=== PATIENT | female | born 1995 ===

== ENCOUNTER 2024-05-23 05:35 | Day surgery (SDC) | payer OTHER ==
[2024-05-23] MEDS ORDERED: POVIDONE-IODINE 118 ML BOTT TOP ONE (08:46)
[2024-05-23] MEDS ORDERED: SUGAMMADEX SODIUM 200 MG/2 ML VIAL IV ONE (09:51)
[2024-05-23] MEDS ORDERED: HEMOSTATIC MATRIX 1 KIT KIT TOP ONE (10:41)
[2024-05-23] MEDS ORDERED: SURGIFLO APPLICATOR 1 EACH APPL TOP ONE (10:41)
[2024-05-23] MEDS ORDERED: IBU800 MG PO (11:26)
[2024-05-23] MEDS ORDERED: NEURONTIN300 MG PO (11:27)
[2024-05-23] MEDS ORDERED: MORPHINE SULFATE 4 MG/ML VIAL IV ONE (12:55)
== END 2024-05-23 13:30 | disposition home or self-care (01) ==
LOC: CIR.AMB 05:35
PROVIDERS: ATTEND Obstetrics & Gynecology Gynecology
DX: D27.0 Benign neoplasm of right ovary (principal); J44.9 Chronic obstructive pulmonary disease, unspecified